=== PATIENT | female | born 2000 | race Caucasian/White ===

== ENCOUNTER 2023-10-09 22:59 | Emergency (ER) | payer OTHER, SELFPAY ==
[2023-10-09 23:01] VITALS: BP 153/85
--- NOTE | 2023-10-09 23:18 | ED.GENMED ---
History of Present Illness
General
Chief Complaint: Fall
Time Seen by Provider: 10/09/23 23:18
Travel History
Have you had any contact with someone who has COVID-19?: No
Do you have any symptoms of coronavirus? Fever > 100 degrees, chills, cough, shortness of breath, sore throat, loss of taste or smell, muscle aches, or headache?: No
History of Present Illness
History of Present Illness:
HPI: The patient with a trip and fall with injury to left forearm. She denies any other injury. She was significant discomfort moving the left upper extremity.
EXAM:
GENERAL: Well appearing in no distress
HEENT: Moist oral mucosa
NEUROLOGIC: Excellent strength all extremities, no coordination deficits
PSYCHIATRIC: Appropriate mental status, normal insight and judgement
EXTREMITIES: Tenderness at the left forearm, no significant edema, decreased active range of motion at the elbow and wrist due to pain at the mid forearm, she is neurovascularly intact distally
SKIN: No rash, no lesions
TIME OF INITIAL ENCOUNTER: 11:40 PM
NUMBER AND COMPLEXITY OF PROBLEMS ADDRESSED AT THE ENCOUNTER
� Chronic conditions affecting care: Pyloric stenosis, ADD
� Acute Exacerbation and/or Progression of Chronic Illness: This is an acute problem
� Differential Diagnosis includes: Forearm fracture, wrist fracture, sprain, contusion
AMOUNT AND/OR COMPLEXITY OF DATA TO BE REVIEWED AND ANALYZED
� I performed an independent evaluation of and my interpretation is:
EKG:
CT:
X-rays: I personally viewed x-rays and see both bone forearm fracture without any significant displacement
Laboratory Studies:
Other:
� Review of other/old records: Had EKG in 2008
� Clinical information was obtained by an independent historian: I spoke to mother at bedside
� Prescriptions/Medications Considered but not given:
� Further testing considered but not performed:
RISK OF COMPLICATIONS AND/OR MORBIDITY OR MORTALITY OF PATIENT MANAGEMENT
� Social determinants of health affecting care: Lives at home, works at [employer]
� Discussion with other providers:
� Escalation of care including admission/observation vs risk of discharge considered: The patient is splinted and analgesia will be started. She is to follow-up with orthopedics. I have given her a work note as she frequently
lifts heavy objects at work.
Phy Exam
Physical Exam
Physical Exam:
See HPI
Course
Orders/Labs/Results
Orders:
Orders
10/09/23 23:06
CR Forearm - Left 2 View Urgent
Comment:
Reason For Exam: pain, injury
CR Wrist - Left Min 3 Views Urgent
Comment:
Reason For Exam: pain, injury
10/09/23 23:26
Splints/Slings/Crut- Treatment ONCE
Crutches: No
Sling to: Left Arm
Type of Splint: Sugar Ton
10/09/23 23:41
Tramadol HCl [Ultram] 50 mg PO NOW STA
Vital Signs
Initial and Last Documented VS:
Initial Vital Signs
Temp Pulse Resp BP Pulse Ox
98.4 F 78 16 153/85 100
10/09/23 23:01 10/09/23 23:01 10/09/23 23:01 10/09/23 23:01 10/09/23 23:01
Last Documented Vital Signs
Temp Pulse Resp BP Pulse Ox
98.4 F 78 16 153/85 100
10/09/23 23:01 10/09/23 23:01 10/09/23 23:01 10/09/23 23:01 10/09/23 23:01
*Critical Care Note
Total Time (30-74mins, 75-104mins- exclusive of procedures): Not Applicable
ED Attending Note
-
Portions of this chart may have been created with voice recognition software.� Occasional wrong word or��sound alike� substitutions may have occurred due to the inherent limitations of voice recognition software.
Discharge Plan
Departure
Date of Disposition: 10/09/23
Time of Disposition: 23:32
Patient with high blood pressure during this ER visit?: Yes
Instructions: Forearm Fracture (DC)
Prescriptions:
New
tramadol 50 mg tablet
50 - 100 mg PO Q8H PRN (Reason: Pain) Qty: 14 0RF
Referrals:
Latanya Pryor I., DO [Active] - Follow up in 2-3 days
Stand Alone Forms: Return to Work
Activity Restrictions/Additional Instructions:
Both of your forearm bones, ulna and radius, are fractured at the midpoint of each bone but there is no displacement noted. I have given the contact information for Dr. Pereira. Return here if worse.
Interventions
Interventions:
*Risk Screen - Suicide Last Done: 10/09/23 23:01
*General Assessment Last Done: 10/09/23 23:01
*Neglect/Abuse Screening Last Done: 10/09/23 23:01
Discharge Date and Time
Print Language: BRITISH
[2023-10-09] MEDS: ULTRAM 50 MG PO (23:55)
[2023-10-10 00:11] VITALS: BMI 54.3
[2023-10-10 00:22] VITALS: BP 145/74
== END 2023-10-10 00:24 | disposition home or self-care (01) ==
LOC: EMR 22:59
PROVIDERS: EMERGENCY PHYSICIAN Emergency Medicine; FAMILY PHYSICIAN Pediatrics
DX: S52.325A Nondisplaced transverse fracture of shaft of left radius, initial encounter for closed fracture (principal); S52.225A Nondisplaced transverse fracture of shaft of left ulna, initial encounter for closed fracture; W01.0XXA Fall on same level from slipping, tripping and stumbling without subsequent striking against object, initial encounter; R03.0 Elevated blood-pressure reading, without diagnosis of hypertension
CPT/HCPCS: 99283; 29125; 73090; 73110

== ENCOUNTER 2023-10-22 06:15 | Day surgery (SDC) | payer OTHER, SELFPAY ==
[2023-10-22] VITALS (12 sets, daily range): BP systolic 99–127; BP diastolic 55–77; BMI 53.7
[2023-10-22] MEDS: NORMOSOL-R 1000 IV (13:29)
== END 2023-10-22 19:55 | disposition home or self-care (01) ==
LOC: SDS 06:15
PROVIDERS: ATTENDING PHYSICIAN Orthopaedic Surgery Hand Surgery
DX: S52.302A Unspecified fracture of shaft of left radius, initial encounter for closed fracture (principal); S52.202A Unspecified fracture of shaft of left ulna, initial encounter for closed fracture; X58.XXXA Exposure to other specified factors, initial encounter
CPT/HCPCS: 25575; 73090; 76000; C1713

== ENCOUNTER 2023-12-07 17:46 | Outpatient (RCR) | payer OTHER, SELFPAY | END 2023-12-07 23:59 | disposition home or self-care (01) | LOC: ROT 17:46 | PROVIDERS: ATTENDING PHYSICIAN Orthopaedic Surgery Orthopaedic Trauma; FAMILY PHYSICIAN Physician Assistant Medical | DX: Z47.89 Encounter for other orthopedic aftercare (principal); S52.255D Nondisplaced comminuted fracture of shaft of ulna, left arm, subsequent encounter for closed fracture with routine healing; S52.322D Displaced transverse fracture of shaft of left radius, subsequent encounter for closed fracture with routine healing; Z73.6 Limitation of activities due to disability | CPT/HCPCS: 97022; 97110; 97140; 97166; 97535 ==

== ENCOUNTER 2024-01-04 16:45 | Outpatient (RCR) | payer OTHER, SELFPAY | END 2024-01-04 23:59 | disposition home or self-care (01) | LOC: ROT 16:45 | PROVIDERS: ATTENDING PHYSICIAN Orthopaedic Surgery Orthopaedic Trauma; FAMILY PHYSICIAN Physician Assistant Medical | DX: S52.255D Nondisplaced comminuted fracture of shaft of ulna, left arm, subsequent encounter for closed fracture with routine healing (principal); S52.322D Displaced transverse fracture of shaft of left radius, subsequent encounter for closed fracture with routine healing; Z73.6 Limitation of activities due to disability | CPT/HCPCS: 97022; 97110 ==

== ENCOUNTER 2024-12-20 00:04 | Emergency (ER) | payer OTHER, SELFPAY ==
[2024-12-20 00:09] VITALS: BP 150/100
[2024-12-20 00:52] LABS: Hematocrit 41.4 % (37.0-47.0); Hemoglobin 13.4 g/dL (12.0-16.0); Mean Corp Hgb Conc. 32.4 g/dL (33.0-37.0); Mean Corpuscular Volume 80.2 fL (81.0-99.0); Platelet Count 278 10^3/uL (130-400); Red Cell Dist. Width 15.9 % (11.5-14.5)
[2024-12-20 01:07] LABS: Blood Urea Nitrogen 12 mg/dl (7-17); Calcium 8.9 mg/dl (8.4-10.2); Carbon Dioxide 30 mmol/L (22-30); Chloride 108 mmol/L (98-107); Glucose 97 mg/dl (70-99); Potassium 3.9 mmol/L (3.5-5.1); Sodium 141 mmol/L (135-145); eGFR > 60.00
[2024-12-20 02:30] VITALS: BMI 51.5
--- NOTE | 2024-12-20 02:36 | ED.GENMED ---
History of Present Illness
<Doe Meredith DO - Last Filed: 12/20/24 02:44>
General
Chief Complaint: Dehydration Symptoms
Source: patient and family (Father)
Exam Limitations: none
Time Seen by Provider: 12/20/24 02:30
Nursing documentation reviewed up to this point in time: agreed with
History of Present Illness
History of Present Illness:
24-year-old female presents emergency department due to vomiting forcefully, with some blood. She states she did not drink enough water when she was at work today. She feels dehydrated.
Past History
<DO Vania Valle Last Filed: 12/20/24 02:44>
Past History
ED Past Medical History: Other (Snoring)
ED Past Surgical History: Other (Pyloric stenosis)
Social History
Tobacco: Non-smoker
Alcohol: None
Drug: None
Personal: Single
Living: with family
Review of Systems
<Doe Meredith DO - Last Filed: 12/20/24 02:44>
Review of Systems
Allergies reviewed?: Yes
All Other Systems: Not applicable
Constitutional: Reports no symptoms
EENT: Reports no symptoms
Respiratory: Reports no symptoms
Cardiac: Reports no symptoms
ABD/GI: Reports nausea and vomiting
: Reports no symptoms
Musculoskeletal: Reports no symptoms
Skin: Reports no symptoms
Neurological: Reports no symptoms
Endocrine: Reports no symptoms
Hematologic/Lymphatic: Reports no symptoms
Psychiatric: Reports no symptoms
Phy Exam
<Doe Meredith DO - Last Filed: 12/20/24 02:44>
Physical Exam
Physical Exam:
Physical Exam
General: no apparent distress, not acutely ill
Neck: supple. no meningeal signs. normal posterior pharynx
Heart: s1/s2 regular rate and rhythm, no murmur. equal radial
pulses.
HEENT: Pupils equal round reactive to light, EOMI
Lungs: no acute respiratory distress. clear bilaterally
Abdomen: normal bowel sounds. not tender. no CVAT
Neuro: alert and oriented. no focal neurological deficits cranial nerves II through XII intact
Skin: no rash
Psychiatric: well kept. interactive and cooperative
Extremities: no edema. no calf tenderness. negative homans. good distal pulses
Course
<Doe Meredith, DO - Last Filed: 12/20/24 02:44>
Orders/Labs/Results
Orders:
Orders
12/20/24 00:32
BMP [Basic Metabolic Panel] Urgent
Complete Blood Count/No Diff Urgent
12/20/24 02:35
Diphenhydramine [Benadryl] 25 mg IV NOW STA
Metoclopramide [Reglan] 10 mg IV NOW STA
12/20/24 02:36
Lactated Ringers [Lr] 1,000 ml IV BOLUS
Abnormal Lab Results
12/20/24
00:32
WBC 11.9 H 10^3/uL
(4.8-10.8)
MCV 80.2 L fL
(81.0-99.0)
MCH 26.0 L pg
(27.0-31.0)
MCHC 32.4 L g/dL
(33.0-37.0)
RDW 15.9 H %
(11.5-14.5)
MPV 10.6 H fL
(7.4-10.4)
Chloride 108 H mmol/L
(98-107)
12/20/24 00:32
12/20/24 00:32
Vital Signs
Initial and Last Documented VS:
Initial Vital Signs
Temp Pulse Resp BP Pulse Ox
98 F 78 20 150/100 98
12/20/24 00:09 12/20/24 00:09 12/20/24 00:09 12/20/24 00:09 12/20/24 00:09
Last Documented Vital Signs
Temp Pulse Resp BP Pulse Ox
98 F 78 20 150/100 96
12/20/24 00:09 12/20/24 00:09 12/20/24 00:09 12/20/24 00:09 12/20/24 02:39
<Omar Donahue, DO - Last Filed: 12/20/24 06:28>
Orders/Labs/Results
Orders:
Orders
12/20/24 00:32
BMP [Basic Metabolic Panel] Urgent
Complete Blood Count/No Diff Urgent
12/20/24 02:35
Diphenhydramine [Benadryl] 25 mg IV NOW STA
Metoclopramide [Reglan] 10 mg IV NOW STA
12/20/24 02:36
Lactated Ringers [Lr] 1,000 ml IV BOLUS
Abnormal Lab Results
12/20/24
00:32
WBC 11.9 H 10^3/uL
(4.8-10.8)
MCV 80.2 L fL
(81.0-99.0)
MCH 26.0 L pg
(27.0-31.0)
MCHC 32.4 L g/dL
(33.0-37.0)
RDW 15.9 H %
(11.5-14.5)
MPV 10.6 H fL
(7.4-10.4)
Chloride 108 H mmol/L
(98-107)
12/20/24 00:32
12/20/24 00:32
Vital Signs
Initial and Last Documented VS:
Initial Vital Signs
Temp Pulse Resp BP Pulse Ox
98 F 78 20 150/100 98
12/20/24 00:09 12/20/24 00:09 12/20/24 00:09 12/20/24 00:09 12/20/24 00:09
Last Documented Vital Signs
Temp Pulse Resp BP Pulse Ox
98 F 78 20 150/100 96
12/20/24 00:09 12/20/24 00:09 12/20/24 00:09 12/20/24 00:09 12/20/24 02:39
<Doe Meredith, DO - Last Filed: 12/20/24 02:44>
MDM/Problems Addressed
Differential Diagnosis Includes:
GI bleed, migraine
MDM/Problems Addressed:
24-year-old female with blood-tinged vomit, migraine. Treat with Reglan and Benadryl, IV lactated Ringer's. Will reevaluate after fluids, Reglan and Benadryl. Otherwise, patient stable for discharge.
<Doe Meredith, DO - Last Filed: 12/20/24 02:44>
*Pulse Oximetry
SaO2: 96
Oxygen Mode of Delivery: Room air
Patient hypoxic: no
*Critical Care Note
Total Time (30-74mins, 75-104mins- exclusive of procedures): Not Applicable
Data Reviewed
Review of Other/Old Records Reveals: Labs
Further Testing Considered But Not Given:
CT abdomen/pelvis not indicated
<Doe Meredith, DO - Last Filed: 12/20/24 02:44>
Patient Management
Social determinants of health affecting care: Living situation and Strong social support
Escalation/DeEscalation of care consider admission/obs:
Admit not indicated
<Omar Donahue, DO - Last Filed: 12/20/24 06:28>
Update Note
Update Note:
Patient is feeling much better and wishes to be discharged home. She has had IV fluids. She no longer has any symptoms. Headache resolved. She does not need a note for work. Patient to be discharged home.
ED Attending Note
<Doe Meredith, DO - Last Filed: 12/20/24 02:44>
-
Portions of this chart may have been created with voice recognition software.� Occasional wrong word or��sound alike� substitutions may have occurred due to the inherent limitations of voice recognition software.
Discharge Plan
Departure
Patient Disposition: Home (Routine Discharge)
Date of Disposition: 12/20/24
Time of Disposition: 06:18
Patient with high blood pressure during this ER visit?: Yes
Condition: Good
Discharge Problem:
Nausea & vomiting
Instructions: Nausea and Vomiting, Adult (DC), BLOOD PRESSURE
Prescriptions:
No Action
acetaminophen [Tylenol Ex Str Arthritis Pain] 500 mg Tablet
500 mg PO Q6H PRN (Reason: pain)
Referrals:
[facility] [Outside]
Activity Restrictions/Additional Instructions:
Thank You for choosing [facility].
It was a pleasure meeting you and taking part in your care. We hope for your continued healing and wellness.
Please read discharge instructions in their entirety. However, they are for general education and may not describe your exact diagnosis at discharge. Information on your ER visit and medical conditions were discussed with you along with appropriate
follow up information...
If indicated, please take your medications as instructed and indicated on discharge paperwork.
Please schedule a follow up appointment as directed. Call to schedule an appointment
Please return to the emergency department with ANY change in, persisting, or worsening of symptoms. If any of your symptoms do not improve, or persist, or become more severe within 6-12 hours, please return to the emergency department for further
care.
Please return to the emergency department if you develop a headache, neck pain/stiffness, fever greater than 100.4F, chest pain, shortness of breath, persistent nausea, vomiting, slurred speech, difficulty walking, numbness/tingling, weakness, signs
of infection or any other symptoms that are worrisome to you.
If you have any questions or concerns please do not hesitate to call the Hospital at or E-mail me directly at [email or web address]
Interventions
Interventions:
*Risk Screen - Suicide Last Done: 12/20/24 00:09
*General Assessment Last Done: 12/20/24 02:32
*Neglect/Abuse Screening Last Done: 12/20/24 00:09
*ED- Fall Risk Assessment Last Done: 12/20/24 02:32
*ED COVID-19 Vaccine History Last Done: 12/20/24 02:32
ED- Cardiac Assessment Last Done: 12/20/24 02:32
ED- Neurological Assessment Last Done: 12/20/24 02:32
ED- Pulmonary Assessment Last Done: 12/20/24 02:32
Discharge Date and Time
Print Language: JAPANESE
[2024-12-20] MEDS: REGLAN 10 MG IV (02:51)
[2024-12-20] MEDS: LR 1000 IV (02:51)
[2024-12-20] MEDS: BENADRYL 25 MG IV (02:52)
[2024-12-20 06:33] VITALS: BP 134/85
== END 2024-12-20 06:41 | disposition home or self-care (01) ==
LOC: EMR 00:04
PROVIDERS: EMERGENCY PHYSICIAN Emergency Medicine; FAMILY PHYSICIAN Nurse Practitioner
DX: K92.0 Hematemesis (principal); R03.0 Elevated blood-pressure reading, without diagnosis of hypertension; K31.1 Adult hypertrophic pyloric stenosis; G43.909 Migraine, unspecified, not intractable, without status migrainosus; F90.9 Attention-deficit hyperactivity disorder, unspecified type; Z88.1 Allergy status to other antibiotic agents
CPT/HCPCS: 99284; 96374; 96375; 96361; 80048; 85027